=== PATIENT | female | born 1995 | race Caucasian/White ===

== ENCOUNTER 2022-05-27 12:41 | Emergency (ER) | payer OTHER ==
[~2022-05-27] VITALS: Ht 149.9 cm; Wt 67.3 kg
[~2022-05-27 12:41] MED LIST: CHOL100083 PO; THYR60TA PO
[2022-05-27 15:19] VITALS: BP 95/68
[2022-05-27] MEDS ORDERED: cefTRIAXone SOD 1,000 MG VL IM ONE (16:00)
[2022-05-27] MEDS ORDERED: PROM1SOL4 PO (16:15)
[2022-05-27] MEDS ORDERED: AMOX400S53 PO (16:15)
== END 2022-05-27 16:25 | disposition home or self-care (01) ==
LOC: ER 12:41
DX: J18.9 Pneumonia, unspecified organism (principal); R07.89 Other chest pain; E03.9 Hypothyroidism, unspecified; Z90.89 Acquired absence of other organs
CPT/HCPCS: 71045; 96372; 99283; J0696